=== PATIENT | female | born 1940 | race African-American/Black ===

== ENCOUNTER 2018-11-18 10:08 | Emergency (ER) | payer OTHER ==
[~2018-11-18] VITALS: Ht 157.5 cm; Wt 77.1 kg
[~2018-11-18 10:08] MED LIST: BENTYL 20 MG TA20 M1 PO; CIPROFLOXACIN500 M1 PO; CLONIDINE0.1; GLIPIZIDE 10 MG10 MG; LABETALOL 100100 MG; NORCO 5-325 TA1 EACH PO; NORVASC10 MG; ONDANSETRON HCL4 M2 PO; ZOCOR 10 MG TAB10 MG
[2018-11-18 10:43] LABS: ABSOLUTE NEUTROPHILS 7.1 thou/uL (1.4-8.2); BASOPHILS 0.6 % (0.0-2.0); EOSINOPHILS 1.4 % (0.0-3.0); HEMATOCRIT 34.6 % (37.0-47.0); HEMOGLOBIN 11.5 gm/dL (12.0-15.0); LYMPHOCYTES 8.6 % (24.0-44.0); MCH 30.1 pg (26.0-34.0); MCHC 33.2 g/dL (28.0-37.0); MCV 90.8 fL (80.0-100.0); PLATELET COUNT 186 thou/uL (150-400); POLYS 82.4 % (36.0-66.0); RBC 3.81 mil/uL (4.20-5.00); RDW 13.7 % (10.5-14.5); WBC 8.7 thou/uL (4.0-11.0)
[2018-11-18 10:50] LABS: CALCIUM 9.2 mg/dL (8.5-10.1); CREATININE 1.8 mg/dL (0.6-1.0); POTASSIUM 4.3 mmol/L (3.5-5.1)
[2018-11-18 10:56] LABS: ALBUMIN 3.9 g/dL (3.4-5.0); TOTAL BILIRUBIN 0.7 mg/dL (<0.1-1.0); TOTAL PROTEIN 7.3 g/dL (6.4-8.2)
[2018-11-18] MEDS ORDERED: NORCO 5-325 TA1 EACH PO (12:08)
[2018-11-18] MEDS ORDERED: CIPRO500 MG PO (12:08)
[2018-11-18] MEDS ORDERED: FLAGYL500 M1 PO (12:08)
[2018-11-18 12:20] LABS: URINE COLOR YELLOW
[2018-11-18 12:21] LABS: URINE BILIRUBIN NEGATIVE (Negative); URINE BLOOD 2+ (Negative); URINE CLARITY CLOUDY; URINE GLUCOSE-RANDOM* NEGATIVE (Negative); URINE KETONES NEGATIVE (Negative); URINE LEUKOCYTES-REFLEX 2+ (Negative); URINE NITRITE-REFLEX NEGATIVE (Negative); URINE PROTEIN (DIPSTICK) 1+ (Negative); URINE SPECIFIC GRAVITY >= 1.030 (1.005-1.035); URINE UROBILINOGEN 0.2 E.U./dl (0.2-1.0)
[2018-11-18 12:37] LABS: AMORPHOUS URATES Moderate /LPF (None Seen); CASTS None Seen /LPF (None Seen); CRYSTALS None Seen /LPF (None Seen); SQUAMOUS 4-10 Moderate /LPF (0-3)
[2018-11-18 12:38] LABS: BACTERIA-REFLEX 1-9 Few /HPF (None Seen); URINE RBC 0-2 Rare /HPF (0-2); URINE WBC-REFLEX 6-15 Few /HPF (0-5)
[2018-11-18 12:54] VITALS: BP 136/60
== END 2018-11-18 12:55 | disposition home or self-care (01) ==
LOC: ER 10:08
PROVIDERS: Physician Assistant
DX: K52.9 Noninfective gastroenteritis and colitis, unspecified (principal); N39.0 Urinary tract infection, site not specified; I12.9 Hypertensive chronic kidney disease with stage 1 through stage 4 chronic kidney disease, or unspecified chronic kidney disease; E11.22 Type 2 diabetes mellitus with diabetic chronic kidney disease; N18.9 Chronic kidney disease, unspecified; K21.9 Gastro-esophageal reflux disease without esophagitis; E78.00 Pure hypercholesterolemia, unspecified; G89.29 Other chronic pain; M25.519 Pain in unspecified shoulder; Z88.0 Allergy status to penicillin; Z88.6 Allergy status to analgesic agent